=== PATIENT | male | born 1975 | race Caucasian/White ===

== ENCOUNTER 2025-02-06 20:42 | Emergency (ER) | payer OTHER ==
[~2025-02-06] VITALS: Ht 172.7 cm; Wt 86.0 kg
[2025-02-06 20:54] VITALS: O2SAT 97
[2025-02-06] MEDS: LIDOCAINE HCL 1% 20ML VIAL INL ONE (22:00)
[2025-02-06] MEDS: IBUPROFEN 600MG TABLET PO ONE (22:41)
[2025-02-06] MEDS: TETANUS, DIPHTHERIA, PERTUSSIS VAC/PF 0.5ML (>10YR OLD) IM ONE (22:42)
[2025-02-06] MEDS: BACITRACIN ZINC OINT UDPKT TOP ONE (22:51)
[2025-02-06 23:46] LABS: BASOPHILS % 0.4 % (0.0-2.0); EOSINOPHILS % 0.1 % (0.0-5.0); HEMATOCRIT. 47.4 % (42.0-52.0); HEMOGLOBIN. 15.9 g/dL (14.0-18.0); LYMPHOCYTES % 16.7 % (20.0-50.0); MEAN PLATELET VOLUME 8.6 fl (7.4-10.4); MONOCYTES % 7.5 % (2.0-8.0); NEUTROPHILS % 75.3 % (40.0-76.0); PLATELET 257 x1000/uL (130-400); RED BLOOD CELL COUNT 5.38 mill/uL (4.7-6.1); RED CELL DISTRIBUTION WIDTH 12.9 % (11.6-14.6)
[2025-02-07] LABS: CREATININE 1.1 mg/dL (0.6-1.3); UREA NITROGEN BLOOD 10 mg/dL (9-23)
[2025-02-07 00:01] LABS: TROPONIN I HIGH SENSITIVITY < 4 ng/L (3.0-53)
[2025-02-07 00:02] LABS: ASPARTATE AMINOTRANSFERASE 21 IU/L (<34); BILIRUBIN DIRECT 0.1 mg/dL (<=3.0); BILIRUBIN TOTAL 0.4 mg/dL (0.1-1.0)
[2025-02-07 00:03] LABS: PROTEIN TOTAL 7.6 g/dL (6.0-8.3)
[2025-02-07] MEDS ORDERED: CEPH500T MT (01:18)
[2025-02-07] MEDS ORDERED: TRAM50TA3 MT (01:18)
[2025-02-07] MEDS ORDERED: IBUP-1455 MT (01:18)
[2025-02-07] MEDS: TRAMADOL 50MG TABLET PO ONE (01:35)
[2025-02-07 02:06] VITALS: BP 131/92; PULSE 63; RESP 18; TEMP 36.5; O2SAT 100
== END 2025-02-07 02:08 | disposition home or self-care (01) ==
LOC: ER 21:16
DX: S62.637A Displaced fracture of distal phalanx of left little finger, initial encounter for closed fracture (principal); R07.9 Chest pain, unspecified; V89.2XXA Person injured in unspecified motor-vehicle accident, traffic, initial encounter; Y93.89 Activity, other specified; Y92.410 Unspecified street and highway as the place of occurrence of the external cause; Y99.8 Other external cause status
CPT/HCPCS: 29130; 36415; 71045; 71250; 73130; 80048; 80076; 84484; 85025; 90471; 90715; 93005; 99285; J2003